=== PATIENT | female | born 1985 | race Caucasian/White ===

== ENCOUNTER 2023-07-27 13:12 | Emergency (ER) | payer MEDICAID, SELFPAY ==
[2023-07-27 13:14] VITALS: BP 142/102; PULSE 102; RESP 18; TEMP 36; O2SAT 99; BMI 44.1
--- NOTE | 2023-07-27 13:22 | EKG12_ITS ---
Test Reason : KB Blood Pressure : / mmHG Vent. Rate : 096 BPM Atrial Rate : 096 BPM P-R Int : 152 ms QRS Dur : 090 ms QT Int : 386 ms P-R-T Axes : 020 054 024 degrees QTc Int : 487 ms Normal sinus rhythm Borderline Prolonged QT Borderline Confirmed by Yahir Buitrago ([id number]), news assignment editor ALESSIA LOPEZ ([id number]) on 07/31/2023 10:16:40 AM Referred By: TIMA/KAMILAH Confirmed By:Yahir Buitrago
--- NOTE | 2023-07-27 13:32 | ED.VIS.CHEST ---
HPI <SHERRILL Olivas - Last Filed: 07/27/23 16:10> History of Present Illness Chief Complaint: Chest Pain Narrative Narrative: 37-year-old female with no significant past medical history states about half an hour ago she was walking out of [employer] and developed chest tightness and discomfort that radiated to her jaw. She had no associated shortness of breath, nausea or vomiting, or diaphoresis. She states symptoms are starting to resolve but she is nervous now that she is in the emergency room. She denies exertion or lifting anything. She has no personal cardiac history and does not smoke. She states her maternal aunt had an SD. In the past she had a PICC line for foot infection and developed a an upper extremity DVT and was on 3 months of anticoagulation. PFSH <SHERRILL Olivas - Last Filed: 07/27/23 16:10> PFSH Medical History no medical history Allergy/AdvReac Type Severity Reaction Status Date / Time No Known Allergies Allergy Verified 07/27/23 13:14 Social History Smoking Status: Never smoker ROS <SHERRILL Olivas - Last Filed: 07/27/23 16:10> ROS ED ROS Narrative Constitutional: Negative for fever, chills, malaise. CVS: Positive for chest pain. Negative for palpitations, syncope. Respiratory: Negative for shortness of breath, cough, orthopnea. GI: Negative for abdominal pain, nausea, vomiting. EXAM <SHERRILL Olivas - Last Filed: 07/27/23 16:10> Physical Exam Narrative Exam Narrative: CONST: Patient sitting in no acute distress. EYES: Normal inspection. NECK: Normal inspection. RESP: No respiratory distress, CTAB. CVS: Regular rate and rhythm, no murmur, no gallop. ABD: Soft and nontender, no guarding or rebound, nondistended. SKIN: Color normal, no rash, warm, dry, intact. EXTREMITIES: Normal appearance, no pedal edema. NEURO: Alert and answering questions appropriately. PSYCH: Normal affect. Const Vital Signs: 07/27/23 13:14 07/27/23 13:40 07/27/23 13:43 Temperature 96.8 F L Temperature Source Temporal Pulse Rate 102 H 90 Respiratory Rate 18 18 Respiratory Effort Normal Blood Pressure 142/102 H 144/89 H Blood Pressure Mean 115 107 Pulse Ox 99 100 Oxygen Delivery Method Room Air Room Air 07/27/23 14:10 07/27/23 15:00 07/27/23 16:00 Temperature Temperature Source Pulse Rate 45 L 98 97 Respiratory Rate 12 16 16 Respiratory Effort Blood Pressure 130/59 H 134/84 H 136/88 H Blood Pressure Mean 82 100 104 Pulse Ox 97 98 92 Oxygen Delivery Method Room Air Room Air Room Air <Dr. Isabela Hernández DO - Last Filed: 07/27/23 16:12> Physical Exam Const Vital Signs: 07/27/23 13:14 07/27/23 13:40 07/27/23 13:43 Temperature 96.8 F L Temperature Source Temporal Pulse Rate 102 H 90 Respiratory Rate 18 18 Respiratory Effort Normal Blood Pressure 142/102 H 144/89 H Blood Pressure Mean 115 107 Pulse Ox 99 100 Oxygen Delivery Method Room Air Room Air 07/27/23 14:10 07/27/23 15:00 07/27/23 16:00 Temperature Temperature Source Pulse Rate 45 L 98 97 Respiratory Rate 12 16 16 Respiratory Effort Blood Pressure 130/59 H 134/84 H 136/88 H Blood Pressure Mean 82 100 104 Pulse Ox 97 98 92 Oxygen Delivery Method Room Air Room Air Room Air <SHERRILL Olivas - Last Filed: 07/27/23 16:10> Heart Score Score: 1 <DO Angel Deleon Last Filed: 07/27/23 16:12> Heart Score History: Moderately Suspicious ECG: Normal Age: </= 45 years Risk Factors: No Risk Factors Troponin: </= Normal Limit Score: 1 [facility] <SHERRILL Olivas Last Filed: 07/27/23 16:10> [facility] Narrative Medical decision making narrative: History gathered from: Patient, significant other Patient had an episode of chest and jaw pain while walking. She appears well and nontoxic. BP 142/102, HR 102, otherwise normal vital signs. Overall her exam is benign. CBC and BMP unremarkable. EKG is sinus rhythm with no ischemic changes and troponin is less than 3 x 2. Since she has a history of an upper extremity DVT and was tachycardic on arrival a D-dimer was ordered and is high. CTA shows no PE or acute process. Patient's pain is resolved while in the ED. I recommended she follow-up with a primary care doctor or return if symptoms worsen. She was discharged in stable condition. I have personally performed a face to face assessment of the patient and have reviewed the MARTHA Note. I performed a substantive portion of the visit including all aspects of the following. My wilson findings include: History is [patient presents to the emergency department complaint chest pain [facility] the emergency department. Patient states symptoms lasted about 20 minutes. She was concerned because the pain radiated to her jaw. She has had similar chest discomfort in the past. She has no heart history and no family history of heart disease. She denies any shortness of breath. Most of her symptoms have resolved at this time just describes some minimal faint discomfort that she rates about a 1 or 2 out of 10. She had no nausea or vomiting with this. Denies recent travel or surgery. No history of PE or DVT. No family history of heart disease.] Exam is [HEENT-PERRLA, EOMI. Cranial nerves II through XII grossly intact. TMs clear. Mucous membranes moist. No adenopathy. Cardiovascular-regular rate and rhythm without murmur or ectopy Lungs-clear to auscultation, chest wall stable without crepitus or subcu emphysema Abdomen-normoactive bowel sounds, soft, nontender, no rebound or rigidity, no peritoneal signs. Extremities-intact ?4, normal range of motion, normal pulses, atraumatic] Medical Decison Making [ ] Other additions or changes: [None] Lab Data Attestation: I reviewed the patient's lab results. Labs: Laboratory Results - last 24 hr 07/27/23 07/27/23 13:42 15:40 WBC 11.2 H RBC 4.39 Hgb 12.8 Hct 39.7 MCV 90.4 MCH 29.2 MCHC 32.2 RDW Std Deviation 43.9 RDW Coeff of [place] 13.4 Plt Count 293 MPV 8.8 Immature Gran % (Auto) 0.300 Neut % (Auto) 51.7 Lymph % (Auto) 36.2 [place] % (Auto) 8.8 Eos % (Auto) 2.1 Baso % (Auto) 0.9 Absolute Neuts (auto) 5.8 Absolute Lymphs (auto) 4.05 Nucleated RBC % 0 D-Dimer Quant (PE/DVT) 0.99 H* Sodium 136 Potassium 3.5 Chloride 102 Carbon Dioxide 27.0 Anion Gap 7 BUN 13 Creatinine 0.64 Estim Creat Clear Calc 148.43 Est GFR (MDRD) Af Amer 134 Est GFR (MDRD) Non-Af 111 BUN/Creatinine Ratio 20.2 H Glucose 103 Calcium 8.8 Troponin I High Sens < 3 L < 3 L Radiography Diagnostic Testing: Clinical Impression(s) from Imaging Studies Chest X-Ray 07/27/23 13:45 IMPRESSION: Normal x-ray examination of the chest. Electronically Signed: Judah Del Rio MD at 13:55 EDT , Chest CTA 07/27/23 14:15 IMPRESSION: Normal CTA chest examination, without a demonstrated pulmonary embolism or arterial dissection. Electronically Signed: Judah Del Rio MD at 15:04 EDT , EKG Initial EKG: Attestation: I personally reviewed and interpreted this EKG as follows: Interpretation: Sinus Rhythm and No Acute Injury Pattern Comments: Normal sinus rhythm at 96 bpm Prolonged QTc at 487 ms No acute ischemic changes <Dr. Isabela Hernández, DO - Last Filed: 07/27/23 16:12> [facility] Narrative Medical decision making narrative: History gathered from: Patient, significant other Patient had an episode of chest and jaw pain while walking. She appears well and nontoxic. BP 142/102, HR 102, otherwise normal vital signs. Overall her exam is benign. CBC and BMP unremarkable. EKG is sinus rhythm with no ischemic changes and troponin is less than 3. Delta pending. Since she has a history of a provoked upper extremity DVT and was tachycardic on arrival a D-dimer was ordered and is high. CTA shows no PE or acute process. I have personally performed a face to face assessment of the patient and have reviewed the MARTHA Note. I performed a substantive portion of the visit including all aspects of the following. My wilson findings include: History is [patient presents to the emergency department complaint chest pain that started while walking to [employer] today prior arrival in the emergency department. Patient states symptoms lasted about 20 minutes. She was concerned because the pain radiated to her jaw. She has had similar chest discomfort in the past. She has no heart history and no family history of heart disease. She denies any shortness of breath. Most of her symptoms have resolved at this time just describes some minimal faint discomfort that she rates about a 1 or 2 out of 10. She had no nausea or vomiting with this. Denies recent travel or surgery. No history of PE or DVT. No family history of heart disease.] Exam is [HEENT-PERRLA, EOMI. Cranial nerves II through XII grossly intact. TMs clear. Mucous membranes moist. No adenopathy. Cardiovascular-regular rate and rhythm without murmur or ectopy Lungs-clear to auscultation, chest wall stable without crepitus or subcu emphysema Abdomen-normoactive bowel sounds, soft, nontender, no rebound or rigidity, no peritoneal signs. Extremities-intact ?4, normal range of motion, normal pulses, atraumatic] Medical Decison Making [patient patient presents with chest pain radiating to her jaw. Mostly resolved currently. In the differential would be coronary syndrome versus PE versus anxiety or GI etiology. IV line established. EKG obtained showed a sinus rhythm with rate of 96 bpm with mildly elevated QT. CBC with differential count 11.2 with hemoglobin 12.8 and platelet count of 293. Chemistries unremarkable. Troponin less than 3. Delta troponin was normal. Elevated D-dimer 0.99 therefore CTA of chest was obtained which was negative for PE. This point patient will be discharged to home diagnosis chest pain etiology uncertain. I do not feel she has an acute coronary syndrome. She has a heart score of 1. I feel she can be safely discharged to home.] Other additions or changes: [None] Lab Data Labs: Laboratory Results - last 24 hr 07/27/23 07/27/23 13:42 15:40 WBC 11.2 H RBC 4.39 Hgb 12.8 Hct 39.7 MCV 90.4 MCH 29.2 MCHC 32.2 RDW Std Deviation 43.9 RDW Coeff of [place] 13.4 Plt Count 293 MPV 8.8 Immature Gran % (Auto) 0.300 Neut % (Auto) 51.7 Lymph % (Auto) 36.2 [place] % (Auto) 8.8 Eos % (Auto) 2.1 Baso % (Auto) 0.9 Absolute Neuts (auto) 5.8 Absolute Lymphs (auto) 4.05 Nucleated RBC % 0 D-Dimer Quant (PE/DVT) 0.99 H* Sodium 136 Potassium 3.5 Chloride 102 Carbon Dioxide 27.0 Anion Gap 7 BUN 13 Creatinine 0.64 Estim Creat Clear Calc 148.43 Est GFR (MDRD) Af Amer 134 Est GFR (MDRD) Non-Af 111 BUN/Creatinine Ratio 20.2 H Glucose 103 Calcium 8.8 Troponin I High Sens < 3 L < 3 L Radiography Diagnostic Testing: Clinical Impression(s) from Imaging Studies Chest X-Ray 07/27/23 13:45 IMPRESSION: Normal x-ray examination of the chest. Electronically Signed: Judah Del Rio MD at 13:55 EDT , Chest CTA 07/27/23 14:15 IMPRESSION: Normal CTA chest examination, without a demonstrated pulmonary embolism or arterial dissection. Electronically Signed: Judah Del Rio MD at 15:04 EDT , 1 view chest x-ray obtained interpreted by myself no evidence of infiltrate or pneumothorax or acute disease process. Radiology in agreement. Discharge Plan Triage Chief Complaint: Chest Pain ED Midlevel Provider: Alyce Contreras ED Provider: Isabela Hernández Dx/Rx/DC Orders Primary Care Provider: Care Physician,No Primary Referrals: Care Physician,No Primary [Primary Care Provider] - Print Language: Mohawk
--- NOTE | 2023-07-27 13:35 | NURSING ---
NO OLD EKGS
[2023-07-27 13:43] VITALS: BP 144/89; PULSE 90; RESP 18; O2SAT 100
--- NOTE | 2023-07-27 13:45 | RAD_ITS ---
STUDY: X-RAY CHEST REASON FOR EXAM: Female, 37 years old. Chest pain TECHNIQUE: Single AP portable view of the chest. COMPARISON: None. FINDINGS: EKG electrodes are seen. The lungs are clear and expanded. There is no demonstrated pleural abnormality. Normal size heart. Normal mediastinum and anne-marie. Normal visualized pulmonary arteries. Normal visualized aortic arch and descending thoracic aorta. Normal visualized thoracic spine. Normal visualized ribs, clavicles, and shoulders. There is no demonstrated abnormality of the visualized soft tissue structures of the upper abdomen. RAD/Chest 1 View (Portable) IMPRESSION: Normal x-ray examination of the chest. Electronically Signed: Judah Del Rio MD at 13:55 EDT ,
[2023-07-27 13:53] LABS: Absolute Lymphocyte Count 4.05 X10^3/uL (0.83-4.51); Absolute Neutrophil Count 5.8 X10^3/uL (2.0-7.7); Basophil% 0.9 % (0-1); Eosinophil# 0.23 X10^3/uL; Eosinophils% 2.1 % (0-5); Hematocrit 39.7 % (37-47); Hemoglobin 12.8 g/dL (12.0-15.0); Lymphocyte # 4.05 X10^3/ul (0.83-4.51); Lymphocyte % 36.2 % (19-41); Mean Corp Hgb Conc 32.2 g/dL (32-36); Mean Corpuscular Hgb 29.2 pg (27.0-32.0); Mean Corpuscular Volume 90.4 fL (81-99); Mean Platelet Vol. 8.8 fl (6.2-12.0); Monocyte# 0.99 X10^3/uL; Monocyte% 8.8 % (0-10); NRBC Flagged by Analyzer 0 % (0-5); Neutrophil # 5.79 X10^3/uL (2.7-7.7); Neutrophil % 51.7 % (47-70); Platelet Count 293 K/mm3 (150-450); RBC Distribution Width CV 13.4 % (11.6-14.6); RBC Distribution Width SD 43.9 fl (35.1-43.9); Red Blood Count 4.39 M/mm3 (4.2-5.4); White Blood Count 11.2 K/mm3 (4.4-11.0)
[2023-07-27 14:10] VITALS: BP 130/59; PULSE 45; RESP 12; O2SAT 97
[2023-07-27 14:14] LABS: D-Dimer Quantitative (DVT/PE) 0.99 FEU/ug/m (0.27-0.49)
[2023-07-27 14:15] LABS: Anion Gap 7 (5-15); BUN 13 mg/dL (7-18); BUN/Creat Ratio 20.2 RATIO (10-20); Calcium,Total 8.8 mg/dL (8.5-10.1); Chloride 102 mmol/L (98-107); Creatinine, Serum 0.64 mg/dL (0.55-1.02); EST Glomerular Filtration Rate 111 mL/min (>60); Est Glom Filt Rate - Afr Amer 134 mL/min (>60); Estimated Creatinine Clearance 148.43 ml/min; Glucose 103 mg/dL (74-106); Potassium 3.5 mmol/L (3.5-5.1); Sodium Level 136 mmol/L (136-145); Troponin-I HS < 3 pg/mL (3.0-54.0)
--- NOTE | 2023-07-27 14:15 | CT_ITS ---
STUDY: CTA CHEST REASON FOR EXAM: Female, 37 years old. Chest pain, elevated d-dimer RADIATION DOSAGE (If Supplied By Facility): CTDIvol = ( 11.47 ) mGy, DLP = ( 474.45 ) mGycm TECHNIQUE: The examination was performed with the intravenous administration of IV 100mL [id number]-[id number]. Post-processing of the angiographic images was performed, with multiplanar reformation and 3D reconstruction. Individualized dose optimization techniques were used for this CT. COMPARISON: Comparison is made with prior chest radiograph done earlier today. FINDINGS: Normal enhancement of the main pulmonary artery and right and left pulmonary arteries. Normal enhancement of the bilateral peripheral pulmonary arteries. There is no demonstrated pulmonary embolism. Normal thoracic aorta and visualized great vessels. There is no demonstrated aortic dissection. Normal heart and pericardium. Normal mediastinum. Normal hilar regions. Normal visualized trachea and bronchi. The lungs are well expanded. Normal pulmonary parenchyma. Normal pleura. Normal chest wall structures. Normal osseous structures. Normal visualized upper abdomen. CT/CTA Chest W/WO Contrast IMPRESSION: Normal CTA chest examination, without a demonstrated pulmonary embolism or arterial dissection. Electronically Signed: Judah Del Rio MD at 15:04 EDT ,
[2023-07-27 15:00] VITALS: BP 134/84; PULSE 98; RESP 16; O2SAT 98
[2023-07-27 16:00] VITALS: BP 136/88; PULSE 97; RESP 16; O2SAT 92
[2023-07-27 16:04] LABS: Troponin-I HS < 3 pg/mL (3.0-54.0)
[2023-07-27 16:22] VITALS: BP 135/78; PULSE 95; RESP 18; TEMP 36.6; O2SAT 97
== END 2023-07-27 16:23 | disposition home or self-care (01) ==
PROVIDERS: Physician Assistant; Emergency Provider Emergency Medicine; Visit Provider Emergency Medicine
DX: R07.9 Chest pain, unspecified (principal)
CPT/HCPCS: 71045; 71275; 80048; 84484; 85025; 85379; 93005; 99283; Q9967; A4216